=== PATIENT | female | born 1975 | race African-American/Black ===

== ENCOUNTER 2025-11-15 09:52 | Emergency (ER) | payer OTHER ==
[~2025-11-15] VITALS: Ht 162.6 cm; Wt 103.6 kg
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
--- NOTE | 2025-11-15 10:46 | DVH ---
CLINICAL INDICATION: INJURY TECHNIQUE: 3 radiographic views of the NASAL BONES were obtained. COMPARISON: None FINDINGS/IMPRESSION: NASAL BONES ARE INTACT. NO FRACTURES NASAL SPINE IS INTACT.
[2025-11-15] MEDS: OXYMETAZOLINE HCL 0.05 % NASAL SPRAY 15ML EACHNOSTRI ONE (10:48)
[2025-11-15] MEDS: HYDROcodone-ACET 10/325MG TAB PO ONE (10:48)
[2025-11-15 11:05] VITALS: BP 143/89; PULSE 79; RESP 20; TEMP 97.9; O2SAT 99
[2025-11-15] MEDS ORDERED: CEPH500C PO (11:23)
[2025-11-15] MEDS ORDERED: HYDR-4798 PO (11:23)
== END 2025-11-15 11:27 | disposition home or self-care (01) ==
LOC: ER 09:52
DX: S00.33XA Contusion of nose, initial encounter (principal); R04.0 Epistaxis; Z79.891 Long term (current) use of opiate analgesic; X58.XXXA Exposure to other specified factors, initial encounter; Y93.89 Activity, other specified; Y92.89 Other specified places as the place of occurrence of the external cause; Y99.8 Other external cause status
CPT/HCPCS: 70160